=== PATIENT | female | born 1960 | race Two or more races ===

== ENCOUNTER 2018-02-12 05:54 | Emergency (ER) | payer MEDICARE, MEDICAID ==
[~2018-02-12] VITALS: Ht 152.4 cm; Wt 90.7 kg
[2018-02-12 06:35] LABS: Basophils # (auto) 0.1 uL; Basophils % (auto) 0.8 % (0.0-2.0); Eosinophils # (auto) 0.2 uL; Eosinophils % (auto) 3.6 % (0.0-7.0); Hematocrit 39.6 % (36.0-46.0); Hemoglobin 13.2 g/dL (12.2-16.2); Lymphocytes # (auto) 2.4 uL; Lymphocytes % (auto) 38.1 % (10.0-50.0); Mean Corpuscular Hemoglobin 27.6 pg (28.0-32.0); Mean Corpuscular Hgb Conc. 33.3 g/dL (32.0-36.0); Mean Corpuscular Volume 82.9 fL (80.0-100.0); Monocytes # (auto) 0.6 uL; Monocytes % (auto) 9.3 % (0.0-12.0); Neutrophils % (auto) 48.2 % (37.0-80.0); Nucleated Red Blood Cells % 0.1 %; Platelet Count (auto) 313 10^3/uL (140-450); Red Blood Cells 4.78 10^6/uL (4.0-5.20); Red Cell Distribution Width 14.7 % (11.8-14.3); White Blood Cell 6.2 10^3/uL (4.4-10.8)
[2018-02-12 06:55] LABS: Alanine Aminotransferase 37 U/L (13-56); Albumin 3.6 g/dL (3.4-5.0); Anion Gap 9 (5-15); Aspartate Aminotransferase 23 U/L (15-37); BUN/Creatinine Ratio 16.9; Blood Urea Nitrogen 14 mg/dL (7-18); Calcium 9.3 mg/dL (8.5-10.1); Carbon Dioxide 27 mmol/L (21-32); Chloride 107 mmol/L (98-107); GFR African American 91 mL/min; GFR Non-African American 75 mL/min; Glucose 118 mg/dL (74-106); Magnesium 2.1 mg/dL (1.6-2.6); Sodium 143 mmol/L (136-145)
[2018-02-12 06:59] LABS: Alkaline Phosphatase 99 U/L (45-117); Bilirubin, Total 0.3 mg/dL (0.2-1.0); Total Protein 7.7 g/dL (6.4-8.2)
[2018-02-12 09:39] VITALS: BP 134/27
== END 2018-02-12 09:47 | disposition home or self-care (01) ==
LOC: ER 05:57
DX: R07.89 Other chest pain (principal); N39.0 Urinary tract infection, site not specified; M62.838 Other muscle spasm; Z88.5 Allergy status to narcotic agent; Z88.2 Allergy status to sulfonamides
CPT/HCPCS: 36415; 71046; 80053; 83735; 83880; 84484; 85025; 93005

== ENCOUNTER 2018-12-17 09:55 | Emergency (ER) | payer OTHER, MEDICAID ==
[~2018-12-17] VITALS: Ht 154.9 cm; Wt 93.0 kg
[2018-12-17 11:54] VITALS: BP 141/81
[2018-12-17] MEDS ORDERED: cefTRIAXone SOD 1,000 MG VL IM ONE (12:15)
[2018-12-17] MEDS ORDERED: methylPREDNISolone SOD SUCC 125 MG/2 ML VL IM ONE (12:15)
== END 2018-12-17 12:53 | disposition home or self-care (01) ==
LOC: ER 09:59
DX: K13.79 Other lesions of oral mucosa (principal); T78.40XA Allergy, unspecified, initial encounter; J45.909 Unspecified asthma, uncomplicated; Z98.51 Tubal ligation status; X58.XXXA Exposure to other specified factors, initial encounter
CPT/HCPCS: 71046; 93005; 96372; 99283; J0696; J2930